=== PATIENT | female | born 1980 | race Caucasian/White ===

== ENCOUNTER 2016-04-24 09:51 | Inpatient (IN) | payer MEDICAID ==
[~2016-04-24] VITALS: Ht 167.6 cm; Wt 125.0 kg
[2016-04-24] MEDS ORDERED: LORazepam 2 MG/ML VIAL IM ONE ×2 (10:30→16:00)
[2016-04-24] MEDS ORDERED: DiphenhydrAMINE HCL 50 MG/ML VIAL IM ONE ×4 (10:30→16:00)
[2016-04-24] MEDS ORDERED: HALOPERIDOL LACTATE 5 MG/ML VIAL IM ONE ×2 (10:30→16:00)
[2016-04-24 10:38] LABS: ADD UA MICROSCOPIC YES; APPEARANCE,URINE CLOUDY (CLEAR); GLUCOSE, URINE (UA) NEGATIVE (NEGATIVE); KETONES,URINE TRACE mg/dL (NEGATIVE); LEUKOCYTE ESTERASE ,URINE SMALL (NEGATIVE); OCCULT BLOOD,URINE LARGE (NEGATIVE); PH,URINE 5.5 (5.0-8.0); PROTEIN,URINE POS 1+ (NEGATIVE)
[2016-04-24 10:43] LABS: RBC,URINE >100 /HPF (0-2); SQUAMOUS EPITHELIAL CELL,UR Few /LPF (None Seen)
[2016-04-24] MEDS ORDERED: ZIPRASIDONE MESYLATE 20 MG/VIAL IM ONE (10:45)
[2016-04-24] MEDS ORDERED: HALOPERIDOL 5 MG TABLET PO PRN (12:45)
[2016-04-24] MEDS ORDERED: LORazepam 2 MG TABLET PO PRN (12:45)
[2016-04-24] MEDS ORDERED: ZOLPIDEM TARTRATE 10 MG TABLET PO PRN (12:45)
[2016-04-24 13:23] LABS: BASOPHILS # (AUTO) 0.09 K/uL (0.00-0.20); EOSINOPHILS # (AUTO) 0.07 K/uL (0.00-0.70); EOSINOPHILS % (AUTO) 0.89 % (1.0-6.0); HEMATOCRIT 37.3 % (36-46); HEMOGLOBIN 12.1 g/dL (12.0-16.0); LYMPHOCYTES # (AUTO) 1.7 K/uL (1.0-4.8); LYMPHOCYTES % (AUTO) 20.8 % (22.0-44.0); MEAN CORPUSCULAR HEMOGLOBIN 26.5 pg (26.0-34.0); MEAN CORPUSCULAR HGB CONC 32.4 G/dL (31.0-37.0); MEAN CORPUSCULAR VOLUME 82 fL (80-100); MONOCYTES # (AUTO) 0.5 K/uL (0.1-1.0); MONOCYTES % (AUTO) 5.8 % (2.0-9.0); NEUTROPHILS % (AUTO) 71.5 % (40.0-70.0); PLATELET COUNT (AUTO) 290 K/uL (150-450); RED BLOOD CELL COUNT(AUTO) 4.57 MIL/uL (4.00-5.20); RED CELL DISTRIBUTION WIDTH 15.2 % (11.5-14.5); WHITE BLOOD COUNT (AUTO) 8.3 K/uL (4.5-11.0)
[2016-04-24 13:32] LABS: ANION GAP 5 mmol/L (8-16); CALCIUM, TOTAL 8.7 mg/dL (8.8-10.5); CARBON DIOXIDE 28 mmol/L (22-29); CHLORIDE 102 mmol/L (98-107); CREATININE 0.86 mg/dL (0.60-1.30); GLOMERULAR FILTR. RATE CALC > 60 mL/min (>60); SODIUM SERUM 135 mmol/L (136-145); UREA NITROGEN, BLOOD 11 mg/dL (7-18)
[2016-04-24 13:39] LABS: ALANINE AMINOTRANSFERASE 45 U/L (12-78); ALBUMIN 3.3 g/dL (3.4-5.0); ASPARTATE AMINOTRANSFERASE 18 U/L (15-37); BILIRUBIN,TOTAL 0.1 mg/dL (0.1-1.0); TOTAL PROTEIN, SERUM 6.7 g/dL (6.4-8.2)
[2016-04-24] MEDS ORDERED: HALOPERIDOL LACTATE 5 MG/ML VIAL ONE (15:52)
[2016-04-24] MEDS ORDERED: LORazepam 2 MG/ML VIAL ONE (15:53)
[2016-04-24 16:04] VITALS: BP 140/71
[2016-04-24] MEDS ORDERED: FluPHENAZine HCL 2.5 MG/ML INJ IM ONE ×2 (16:04→16:45)
[2016-04-24] MEDS ORDERED: INFLUENZA VIRUS VACCINE QVS 2016-17 (3YR+)/PF 60 MCG/0.5 ML SYRINGE IM ONE (17:00)
[2016-04-25 08:46] VITALS: BP 127/62
[2016-04-25] MEDS: RisperiDONE 1 MG TABLET PO SCH ×2 (12:00→17:00)
[2016-04-26] MEDS: RisperiDONE 1 MG TABLET PO SCH ×2 (09:00→16:46)
[2016-04-27 08:54] VITALS: BP 126/84
[2016-04-27] MEDS ORDERED: DiphenhydrAMINE HCL 50 MG/ML VIAL IM ONE (16:45)
[2016-04-27] MEDS: NICOTINE 21 MG/24 HOUR PATCH TD SCH (17:01)
[2016-04-27] MEDS: OLANZapine 5 MG TABLET PO SCH (21:00)
[2016-04-28] MEDS: NICOTINE 21 MG/24 HOUR PATCH TD SCH (08:20)
[2016-04-28] MEDS: OLANZapine 5 MG TABLET PO SCH (21:00)
[2016-04-29] MEDS: NICOTINE 21 MG/24 HOUR PATCH TD SCH (08:24)
[2016-04-29 16:38] VITALS: BP 137/76
[2016-04-29] MEDS ORDERED: ALBUTEROL SULFATE HFA 90 MCG/PUFF 8 GM INHALER IH PRN (16:45)
[2016-04-29] MEDS: OLANZapine 5 MG TABLET PO SCH (21:00)
[2016-04-30] MEDS: NICOTINE 21 MG/24 HOUR PATCH TD SCH (08:22)
[2016-04-30] MEDS ORDERED: OLAN5TAB2 PO (10:56)
== END 2016-04-30 13:20 | disposition home or self-care (01) | DRG 753 ==
LOC: EMS 09:56 → EEVIPCON 09:56 → B3A 14:26
PROVIDERS: ADMIT Psychiatry & Neurology Child & Adolescent Psychiatry; ATTEND Psychiatry & Neurology Child & Adolescent Psychiatry
DX: F31.2 Bipolar disorder, current episode manic severe with psychotic features (principal); Z68.41 Body mass index [BMI] 40.0-44.9, adult; E66.3 Overweight; F12.90 Cannabis use, unspecified, uncomplicated; J45.909 Unspecified asthma, uncomplicated; Z59.0 Homelessness; F14.90 Cocaine use, unspecified, uncomplicated; Z88.8 Allergy status to other drugs, medicaments and biological substances
CPT/HCPCS: 96372; 99285; G0480; J1200; J1630; J2060; J3486; J3490; J3535

== ENCOUNTER 2016-05-31 20:07 | Inpatient (IN) | payer MEDICAID ==
[~2016-05-31] VITALS: Ht 167.6 cm; Wt 90.9 kg
[~2016-05-31 20:07] MED LIST: OLAN5TAB2 PO
[2016-05-31 20:34] LABS: BASOPHILS % (AUTO) 0.6 % (0.0-2.0); HEMATOCRIT 37.3 % (36-46); HEMOGLOBIN 12.2 g/dL (12.0-16.0); LYMPHOCYTES # (AUTO) 1.8 K/uL (1.0-4.8); LYMPHOCYTES % (AUTO) 23.6 % (22.0-44.0); MEAN CORPUSCULAR HEMOGLOBIN 26.3 pg (26.0-34.0); MEAN CORPUSCULAR HGB CONC 32.8 G/dL (31.0-37.0); MEAN CORPUSCULAR VOLUME 80 fL (80-100); MONOCYTES # (AUTO) 0.7 K/uL (0.1-1.0); MONOCYTES % (AUTO) 9.6 % (2.0-9.0); NEUTROPHILS % (AUTO) 65.2 % (40.0-70.0); PLATELET COUNT (AUTO) 345 K/uL (150-450); RED BLOOD CELL COUNT(AUTO) 4.64 MIL/uL (4.00-5.20); RED CELL DISTRIBUTION WIDTH 15.4 % (11.5-14.5); WHITE BLOOD COUNT (AUTO) 7.6 K/uL (4.5-11.0)
[2016-05-31 20:44] LABS: ANION GAP 8 mmol/L (8-16); CALCIUM, TOTAL 9.1 mg/dL (8.8-10.5); CARBON DIOXIDE 29 mmol/L (22-29); CHLORIDE 104 mmol/L (98-107); CREATININE 1.24 mg/dL (0.60-1.30); GLOMERULAR FILTR. RATE CALC 49 mL/min (>60); POTASSIUM 4.3 mmol/L (3.5-5.1); SODIUM SERUM 141 mmol/L (136-145); UREA NITROGEN, BLOOD 10 mg/dL (7-18)
[2016-05-31 20:51] LABS: ALANINE AMINOTRANSFERASE 27 U/L (12-78); ALBUMIN 3.6 g/dL (3.4-5.0); ASPARTATE AMINOTRANSFERASE 18 U/L (15-37); BILIRUBIN,TOTAL 0.3 mg/dL (0.1-1.0); TOTAL PROTEIN, SERUM 7.2 g/dL (6.4-8.2)
[2016-05-31] MEDS ORDERED: HALOPERIDOL 5 MG TABLET PO PRN (21:30)
[2016-05-31] MEDS ORDERED: LORazepam 2 MG TABLET PO PRN (21:30)
[2016-05-31] MEDS ORDERED: ZOLPIDEM TARTRATE 10 MG TABLET PO PRN (21:30)
[2016-06-01] MEDS ORDERED: LORazepam 2 MG/ML VIAL IM ONE (11:30)
[2016-06-01 12:46] VITALS: BP 139/89
[2016-06-01] MEDS ORDERED: ALBUTEROL SULFATE HFA 90 MCG/PUFF 8 GM INHALER IH PRN (14:30)
[2016-06-02 01:17] VITALS: BP 120/66
[2016-06-02] MEDS ORDERED: IBUPROFEN 400 MG TABLET PO PRN (10:45)
[2016-06-02] MEDS ORDERED: ACETAMINOPHEN 325 MG TABLET PO PRN (10:45)
[2016-06-02] MEDS ORDERED: ALBUTEROL SULFATE HFA 90 MCG/PUFF 8 GM INHALER IH PRN (10:45)
[2016-06-02] MEDS: NICOTINE 21 MG/24 HOUR PATCH TD SCH (12:35)
[2016-06-03] MEDS: NICOTINE 21 MG/24 HOUR PATCH TD SCH (08:22)
[2016-06-03 08:23] LABS: BASOPHILS # (AUTO) 0.04 K/uL (0.00-0.20); BASOPHILS % (AUTO) 0.6 % (0.0-2.0); EOSINOPHILS % (AUTO) 1.48 % (1.0-6.0); HEMATOCRIT 39.4 % (36-46); HEMOGLOBIN 12.8 g/dL (12.0-16.0); LYMPHOCYTES # (AUTO) 2.8 K/uL (1.0-4.8); LYMPHOCYTES % (AUTO) 41.5 % (22.0-44.0); MEAN CORPUSCULAR HEMOGLOBIN 26.2 pg (26.0-34.0); MEAN CORPUSCULAR HGB CONC 32.6 G/dL (31.0-37.0); MEAN CORPUSCULAR VOLUME 80 fL (80-100); MONOCYTES # (AUTO) 0.5 K/uL (0.1-1.0); MONOCYTES % (AUTO) 6.8 % (2.0-9.0); NEUTROPHILS # (AUTO) 3.3 K/uL (1.8-7.7); NEUTROPHILS % (AUTO) 49.7 % (40.0-70.0); PLATELET COUNT (AUTO) 355 K/uL (150-450); RED CELL DISTRIBUTION WIDTH 16.4 % (11.5-14.5); WHITE BLOOD COUNT (AUTO) 6.7 K/uL (4.5-11.0)
[2016-06-03 08:44] LABS: HEMOGLOBIN A1C 5.4 % (4.5-6.2)
[2016-06-03 08:50] LABS: ALANINE AMINOTRANSFERASE 35 U/L (12-78); ALBUMIN 3.6 g/dL (3.4-5.0); ANION GAP 7 mmol/L (8-16); ASPARTATE AMINOTRANSFERASE 16 U/L (15-37); BILIRUBIN,TOTAL 0.3 mg/dL (0.1-1.0); CARBON DIOXIDE 30 mmol/L (22-29); CHLORIDE 103 mmol/L (98-107); CHOL/HDL RATIO 4.3 (3.9-5.7); CREATININE 0.94 mg/dL (0.60-1.30); GLOMERULAR FILTR. RATE CALC > 60 mL/min (>60); POTASSIUM 3.9 mmol/L (3.5-5.1); SODIUM SERUM 140 mmol/L (136-145); THYROID STIMULATING HORMONE 1.69 uIU/mL (0.36-3.74); TOTAL PROTEIN, SERUM 7.2 g/dL (6.4-8.2); UREA NITROGEN, BLOOD 7 mg/dL (7-18)
[2016-06-03] MEDS: RisperiDONE 2 MG TABLET PO SCH ×3 (10:15→17:00)
[2016-06-04] MEDS: NICOTINE 21 MG/24 HOUR PATCH TD SCH (08:53)
[2016-06-04] MEDS: RisperiDONE 2 MG TABLET PO SCH (08:54)
[2016-06-04] MEDS ORDERED: RISP2 PO (09:47)
== END 2016-06-04 13:28 | disposition home or self-care (01) | DRG 750 ==
LOC: EMS 20:08 → EEVIPCON 20:08 → B3A 06-01 10:21
PROVIDERS: ADMIT Psychiatry & Neurology Psychiatry; ATTEND Psychiatry & Neurology Psychiatry
DX: F25.9 Schizoaffective disorder, unspecified (principal); Z59.0 Homelessness; F31.9 Bipolar disorder, unspecified; F10.10 Alcohol abuse, uncomplicated; F17.210 Nicotine dependence, cigarettes, uncomplicated; F15.90 Other stimulant use, unspecified, uncomplicated; F19.10 Other psychoactive substance abuse, uncomplicated; J45.909 Unspecified asthma, uncomplicated; F41.9 Anxiety disorder, unspecified; Z88.8 Allergy status to other drugs, medicaments and biological substances; Z79.899 Other long term (current) drug therapy; Z71.6 Tobacco abuse counseling; Z71.41 Alcohol abuse counseling and surveillance of alcoholic; Z71.89 Other specified counseling
CPT/HCPCS: 83036; 84443; 96372; 99285; G0480; J2060; J3535

== ENCOUNTER 2016-08-12 09:18 | Inpatient (IN) | payer MEDICAID ==
[~2016-08-12] VITALS: Ht 167.6 cm; Wt 112.9 kg
[~2016-08-12 09:18] MED LIST changes: -OLAN5TAB2 PO; +RISP2 PO
[2016-08-12] MEDS ORDERED: ALBU8HFA IH (09:35)
[2016-08-12 09:47] LABS: GLUCOSE,POINT OF CARE 100 MG/DL (70-110)
[2016-08-12 10:58] LABS: BASOPHILS % (AUTO) 0.5 % (0.0-2.0); EOSINOPHILS % (AUTO) 1.6 % (1.0-6.0); HEMOGLOBIN 11.7 g/dL (12.0-16.0); LYMPHOCYTES # (AUTO) 1.9 K/uL (1.0-4.8); LYMPHOCYTES % (AUTO) 29.2 % (22.0-44.0); MEAN CORPUSCULAR HEMOGLOBIN 25.5 pg (26.0-34.0); MEAN CORPUSCULAR HGB CONC 32.5 G/dL (31.0-37.0); MEAN CORPUSCULAR VOLUME 78 fL (80-100); MONOCYTES # (AUTO) 0.5 K/uL (0.1-1.0); NEUTROPHILS # (AUTO) 4.1 K/uL (1.8-7.7); NEUTROPHILS % (AUTO) 61.7 % (40.0-70.0); PLATELET COUNT (AUTO) 376 K/uL (150-450); RED CELL DISTRIBUTION WIDTH 16.7 % (11.5-14.5); WHITE BLOOD COUNT (AUTO) 6.6 K/uL (4.5-11.0)
[2016-08-12] MEDS ORDERED: DiphenhydrAMINE HCL 50 MG/ML VIAL IM ONE (11:00)
[2016-08-12] MEDS ORDERED: HALOPERIDOL LACTATE 5 MG/ML VIAL IM ONE ×2 (11:00→12:30)
[2016-08-12] MEDS ORDERED: LORazepam 2 MG/ML VIAL IM ONE (11:00)
[2016-08-12 11:07] LABS: ANION GAP 12 mmol/L (8-16); CALCIUM, TOTAL 8.8 mg/dL (8.8-10.5); CARBON DIOXIDE 23 mmol/L (22-29); CHLORIDE 103 mmol/L (98-107); CREATININE 0.91 mg/dL (0.60-1.30); GLOMERULAR FILTR. RATE CALC > 60 mL/min (>60); POTASSIUM 3.9 mmol/L (3.5-5.1); SODIUM SERUM 138 mmol/L (136-145); UREA NITROGEN, BLOOD 12 mg/dL (7-18)
[2016-08-12 11:13] LABS: ALANINE AMINOTRANSFERASE 36 U/L (12-78); ALBUMIN 3.8 g/dL (3.4-5.0); ASPARTATE AMINOTRANSFERASE 36 U/L (15-37); BILIRUBIN,TOTAL 0.4 mg/dL (0.1-1.0); TOTAL PROTEIN, SERUM 7.1 g/dL (6.4-8.2)
[2016-08-12] MEDS ORDERED: ALBUTEROL SULFATE HFA 90 MCG/PUFF 8 GM INHALER IH PRN (14:30)
[2016-08-12] MEDS: RisperiDONE 3 MG TABLET PO SCH (17:00)
[2016-08-13] MEDS: FERROUS SULFATE 325 MG EC TABLET PO SCH ×2 (06:42→17:45)
[2016-08-13 08:21] VITALS: BP 115/68
[2016-08-13] MEDS: RisperiDONE 3 MG TABLET PO SCH ×2 (09:00→17:45)
[2016-08-13] MEDS ORDERED: DiphenhydrAMINE HCL 50 MG/ML VIAL IM ONE (12:00)
[2016-08-13] MEDS ORDERED: LORazepam 2 MG/ML VIAL IM ONE (12:00)
[2016-08-13] MEDS ORDERED: HALOPERIDOL LACTATE 5 MG/ML VIAL IM ONE (12:00)
[2016-08-13] MEDS: HALOPERIDOL 5 MG TABLET PO PRN (20:16)
[2016-08-13] MEDS: LORazepam 2 MG TABLET PO PRN (20:16)
[2016-08-14] MEDS: FERROUS SULFATE 325 MG EC TABLET PO SCH ×2 (06:52→16:52)
[2016-08-14 08:20] VITALS: BP 104/76
[2016-08-14] MEDS: RisperiDONE 3 MG TABLET PO SCH ×2 (09:00→16:52)
[2016-08-14] MEDS: HALOPERIDOL 5 MG TABLET PO PRN ×2 (12:46→19:50)
[2016-08-14] MEDS: LORazepam 2 MG TABLET PO PRN ×2 (12:46→19:50)
[2016-08-14 16:07] VITALS: BP 110/79
[2016-08-14] MEDS: ZOLPIDEM TARTRATE 10 MG TABLET PO PRN (21:26)
[2016-08-15] MEDS: FERROUS SULFATE 325 MG EC TABLET PO SCH ×2 (06:54→17:27)
[2016-08-15] MEDS: RisperiDONE 3 MG TABLET PO SCH ×2 (10:00→17:00)
[2016-08-15] MEDS: NICOTINE 14 MG/24 HOUR PATCH TD SCH (10:00)
[2016-08-15] MEDS ORDERED: LORazepam 2 MG/ML VIAL ONE (10:48)
[2016-08-15] MEDS ORDERED: HALOPERIDOL LACTATE 5 MG/ML VIAL ONE (10:48)
[2016-08-15] MEDS ORDERED: DiphenhydrAMINE HCL 50 MG/ML VIAL ONE (10:48)
[2016-08-15] MEDS ORDERED: DiphenhydrAMINE HCL 50 MG/ML VIAL IM ONE (11:00)
[2016-08-15] MEDS ORDERED: LORazepam 2 MG/ML VIAL IM ONE ×2 (11:00→17:30)
[2016-08-15] MEDS ORDERED: HALOPERIDOL LACTATE 5 MG/ML VIAL IM ONE ×2 (11:00→17:30)
[2016-08-16] MEDS: FERROUS SULFATE 325 MG EC TABLET PO SCH ×2 (06:42→17:30)
[2016-08-16] MEDS: RisperiDONE 3 MG TABLET PO SCH ×3 (09:00→17:00)
[2016-08-16] MEDS: NICOTINE 14 MG/24 HOUR PATCH TD SCH ×2 (10:00→10:21)
[2016-08-16] MEDS ORDERED: LORazepam 2 MG/ML VIAL IM ONE (10:30)
[2016-08-16] MEDS ORDERED: DiphenhydrAMINE HCL 50 MG/ML VIAL IM ONE (10:30)
[2016-08-16] MEDS ORDERED: HALOPERIDOL LACTATE 5 MG/ML VIAL IM ONE (10:30)
[2016-08-16 18:33] VITALS: BP 120/71
[2016-08-17] MEDS: FERROUS SULFATE 325 MG EC TABLET PO SCH ×2 (07:04→16:35)
[2016-08-17] MEDS: RisperiDONE 3 MG TABLET PO SCH ×2 (09:00→16:35)
[2016-08-17] MEDS: NICOTINE 14 MG/24 HOUR PATCH TD SCH (09:00)
[2016-08-18] MEDS: LORazepam 2 MG TABLET PO PRN (01:04)
[2016-08-18] MEDS: FERROUS SULFATE 325 MG EC TABLET PO SCH ×2 (09:59→18:04)
[2016-08-18] MEDS: RisperiDONE 3 MG TABLET PO SCH ×2 (09:59→18:04)
[2016-08-18] MEDS: NICOTINE 14 MG/24 HOUR PATCH TD SCH (09:59)
[2016-08-18 16:00] VITALS: BP 122/72
[2016-08-18] MEDS: ZOLPIDEM TARTRATE 10 MG TABLET PO PRN (23:35)
[2016-08-19] MEDS: LORazepam 2 MG TABLET PO PRN ×2 (04:22→21:49)
[2016-08-19] MEDS: FERROUS SULFATE 325 MG EC TABLET PO SCH ×2 (07:01→16:42)
[2016-08-19] MEDS: RisperiDONE 3 MG TABLET PO SCH ×2 (10:01→16:42)
[2016-08-19] MEDS: NICOTINE 14 MG/24 HOUR PATCH TD SCH (10:13)
[2016-08-19 12:13] VITALS: BP 149/87
[2016-08-19 16:47] VITALS: BP 131/83
[2016-08-19 16:48] VITALS: BP 131/83
[2016-08-19] MEDS: ZOLPIDEM TARTRATE 10 MG TABLET PO PRN (21:49)
[2016-08-20] MEDS: FERROUS SULFATE 325 MG EC TABLET PO SCH (07:04)
[2016-08-20 08:25] VITALS: BP 140/76
[2016-08-20] MEDS ORDERED: FERR-89 PO (08:30)
[2016-08-20] MEDS ORDERED: RISP3 PO (08:30)
[2016-08-20] MEDS: NICOTINE 14 MG/24 HOUR PATCH TD SCH (08:59)
[2016-08-20] MEDS: RisperiDONE 3 MG TABLET PO SCH (08:59)
== END 2016-08-20 12:15 | disposition home or self-care (01) | DRG 750 ==
LOC: EMS 09:19 → 3EC 11:18
PROVIDERS: ADMIT Psychiatry & Neurology Psychiatry; ATTEND Psychiatry & Neurology Psychiatry
DX: F25.9 Schizoaffective disorder, unspecified (principal); J18.9 Pneumonia, unspecified organism; F22 Delusional disorders; Z59.0 Homelessness; F31.9 Bipolar disorder, unspecified; J45.909 Unspecified asthma, uncomplicated; F17.210 Nicotine dependence, cigarettes, uncomplicated; F15.90 Other stimulant use, unspecified, uncomplicated; F19.10 Other psychoactive substance abuse, uncomplicated; Z71.51 Drug abuse counseling and surveillance of drug abuser; Z72.89 Other problems related to lifestyle
CPT/HCPCS: 82962; 96372; 99291; G0480; J1200; J1630; J2060; J3535

== ENCOUNTER 2016-12-22 14:02 | Inpatient (IN) | payer MEDICAID, OTHER ==
[~2016-12-22] VITALS: Ht 167.6 cm; Wt 104.5 kg
[~2016-12-22 14:02] MED LIST changes: +FERR-89 PO; -RISP2 PO; +RISP3 PO
[2016-12-22] MEDS ORDERED: HALO5 PO (14:29)
[2016-12-22] MEDS ORDERED: ZOLPIDEM TARTRATE 10 MG TABLET PO PRN (16:00)
[2016-12-22 20:03] VITALS: BP 142/79
[2016-12-22] MEDS ORDERED: PNEUMOCOCCAL VACCINE POLYVALENT 0.5 ML VIAL [PPSV23] IM ONE (20:15)
[2016-12-22] MEDS ORDERED: INFLUENZA VIRUS VACCINE QVS 2017-18 (3YR+)/PF 60 MCG/0.5 ML SYRINGE IM ONE (20:15)
[2016-12-23 08:29] VITALS: BP 150/79
[2016-12-23] MEDS: NICOTINE 21 MG/24 HOUR PATCH TD SCH (08:44)
[2016-12-23] MEDS: LORazepam 2 MG TABLET PO PRN ×2 (09:27→21:05)
[2016-12-23] MEDS: HALOPERIDOL 5 MG TABLET PO PRN ×2 (09:28→21:05)
[2016-12-23] MEDS ORDERED: LORazepam 2 MG/ML VIAL ONE (09:54)
[2016-12-23] MEDS ORDERED: HALOPERIDOL LACTATE 5 MG/ML VIAL ONE (09:54)
[2016-12-23] MEDS ORDERED: DiphenhydrAMINE HCL 50 MG/ML VIAL ONE (09:55)
[2016-12-23] MEDS ORDERED: LORazepam 2 MG/ML VIAL IM ONE (10:00)
[2016-12-23] MEDS ORDERED: HALOPERIDOL LACTATE 5 MG/ML VIAL IM ONE (10:00)
[2016-12-23] MEDS ORDERED: DiphenhydrAMINE HCL 50 MG/ML VIAL IM ONE (10:00)
[2016-12-23] MEDS: RisperiDONE 2 MG TABLET PO SCH (16:38)
[2016-12-23] MEDS ORDERED: CloNIDine HCL 0.1 MG TABLET PO PRN (19:30)
[2016-12-23] MEDS ORDERED: ACETAMINOPHEN 325 MG TABLET PO PRN (19:30)
[2016-12-23] MEDS ORDERED: IBUPROFEN 600 MG TABLET PO PRN (19:30)
[2016-12-23] MEDS ORDERED: MAGNESIUM HYDROXIDE SUSPENSION 30 ML UDCUP PO PRN (19:30)
[2016-12-23] MEDS ORDERED: BENZOCAINE/MENTHOL LOZENGE MM PRN (19:30)
[2016-12-23] MEDS ORDERED: ONDANSETRON HCL 4 MG TABLET PO PRN (19:30)
[2016-12-23] MEDS ORDERED: MAG HYDROX/AL HYDROX/SIMETH ES 30 ML SUSPENSION UDCUP PO PRN (19:30)
[2016-12-23] MEDS ORDERED: BACITRACIN 28.4 GM OINTMENT TP PRN (19:30)
[2016-12-23] MEDS ORDERED: ALBUTEROL SULFATE HFA 90 MCG/PUFF 8 GM INHALER IH PRN (19:30)
[2016-12-23] MEDS ORDERED: PETROLATUM,WHITE 71 GM JELLY TP PRN (19:30)
[2016-12-23] MEDS ORDERED: LOPERAMIDE HCL 2 MG CAPSULE PO PRN (19:30)
[2016-12-24] MEDS: RisperiDONE 2 MG TABLET PO SCH ×2 (09:00→17:00)
[2016-12-24] MEDS: NICOTINE 21 MG/24 HOUR PATCH TD SCH (10:40)
[2016-12-24] MEDS: LISINOPRIL 10 MG TABLET PO SCH (10:41)
[2016-12-24] MEDS: HALOPERIDOL 5 MG TABLET PO PRN (12:39)
[2016-12-24] MEDS: LORazepam 2 MG TABLET PO PRN (12:39)
[2016-12-24 18:05] VITALS: BP 134/91
[2016-12-25 07:18] VITALS: BP 148/82
[2016-12-25 08:04] LABS: BASOPHILS # (AUTO) 0.02 K/uL (0.00-0.20); BASOPHILS % (AUTO) 0.3 % (0.0-2.0); EOSINOPHILS # (AUTO) 0.09 K/uL (0.00-0.70); EOSINOPHILS % (AUTO) 1.35 % (1.0-6.0); HEMOGLOBIN 11.9 g/dL (12.0-16.0); LYMPHOCYTES # (AUTO) 2.4 K/uL (1.0-4.8); MEAN CORPUSCULAR HEMOGLOBIN 27.5 pg (26.0-34.0); MEAN CORPUSCULAR HGB CONC 32.9 G/dL (31.0-37.0); MEAN CORPUSCULAR VOLUME 84 fL (80-100); MONOCYTES # (AUTO) 0.7 K/uL (0.1-1.0); MONOCYTES % (AUTO) 9.7 % (2.0-9.0); NEUTROPHILS # (AUTO) 3.7 K/uL (1.8-7.7); NEUTROPHILS % (AUTO) 53.6 % (40.0-70.0); PLATELET COUNT (AUTO) 321 K/uL (150-450); RED BLOOD CELL COUNT(AUTO) 4.31 MIL/uL (4.00-5.20); RED CELL DISTRIBUTION WIDTH 18.7 % (11.5-14.5)
[2016-12-25 08:51] LABS: AMPHET/METH SCREEN,URINE NEGATIVE (NEGATIVE); BARBITURATE SCREEN, URINE NEGATIVE (NEGATIVE); BENZODIAZEPINES SCREEN,URINE NEGATIVE (NEGATIVE); CANNABINOID SCREEN,URINE NEGATIVE (NEGATIVE); COCAINE SCREEN,URINE NEGATIVE (NEGATIVE); METHADONE SCREEN, URINE NEGATIVE (NEGATIVE); OPIATE SCREEN,URINE NEGATIVE (NEGATIVE); PHENCYCLIDINE SCREEN,URINE NEGATIVE (NEGATIVE)
[2016-12-25 09:00] LABS: HEMOGLOBIN A1C 4.9 % (4.5-6.2)
[2016-12-25] MEDS: RisperiDONE 2 MG TABLET PO SCH ×2 (09:00→17:00)
[2016-12-25] MEDS: LISINOPRIL 10 MG TABLET PO SCH (09:00)
[2016-12-25 10:03] LABS: ALANINE AMINOTRANSFERASE 28 U/L (12-78); ALBUMIN 3.4 g/dL (3.4-5.0); ALKALINE PHOSPHATASE 76 U/L (46-116); ANION GAP 8 mmol/L (8-16); ASPARTATE AMINOTRANSFERASE 10 U/L (15-37); BILIRUBIN,TOTAL 0.3 mg/dL (0.1-1.0); CALCIUM, TOTAL 8.7 mg/dL (8.8-10.5); CARBON DIOXIDE 30 mmol/L (22-29); CHLORIDE 102 mmol/L (98-107); CHOL/HDL RATIO 3.8 (3.9-5.7); CHOLESTEROL 150 mg/dL (131-200); CREATININE 0.89 mg/dL (0.60-1.30); GLOMERULAR FILTR. RATE CALC > 60 mL/min (>60); GLUCOSE,RANDOM 77 mg/dL (70-110); HCG,QUANTITATIVE < 1 mIU/mL (0-6); HDL CHOLESTEROL 40 mg/dL (40-60); LDL CHOL (CALC.) 88 mg/dL (0-130); POTASSIUM 4.3 mmol/L (3.5-5.1); SODIUM SERUM 140 mmol/L (136-145); THYROID STIMULATING HORMONE 4.19 uIU/mL (0.36-3.74); TOTAL PROTEIN, SERUM 6.8 g/dL (6.4-8.2); TRIGLYCERIDES 112 mg/dL (15-150); UREA NITROGEN, BLOOD 12 mg/dL (7-18)
[2016-12-25] MEDS: NICOTINE 21 MG/24 HOUR PATCH TD SCH (10:09)
[2016-12-25 10:18] LABS: APPEARANCE,URINE CLEAR (CLEAR); BILIRUBIN,URINE NEGATIVE (NEGATIVE); GLUCOSE, URINE (UA) NEGATIVE (NEGATIVE); KETONES,URINE NEGATIVE (NEGATIVE); LEUKOCYTE ESTERASE ,URINE NEGATIVE (NEGATIVE); NITRATE,URINE NEGATIVE (NEGATIVE); OCCULT BLOOD,URINE NEGATIVE (NEGATIVE); PROTEIN,URINE NEGATIVE (NEGATIVE); UROBILINOGEN,URINE 0.2 mg/dL (<=1.0)
[2016-12-25 11:30] LABS: HCG,QUAL RESULT NEGATIVE (NEGATIVE)
[2016-12-25] MEDS: HALOPERIDOL 5 MG TABLET PO PRN (12:59)
[2016-12-25] MEDS: LORazepam 2 MG TABLET PO PRN (12:59)
[2016-12-25 16:00] VITALS: BP 128/80
[2016-12-25 19:16] LABS: FREE T4 (FREE THYROXINE) 1.15 ng/dL (0.76-1.46)
[2016-12-26 06:10] VITALS: BP 119/69
[2016-12-26 08:05] VITALS: BP 104/77
[2016-12-26] MEDS: LORazepam 2 MG TABLET PO PRN (08:55)
[2016-12-26] MEDS: LISINOPRIL 10 MG TABLET PO SCH (08:57)
[2016-12-26] MEDS: RisperiDONE 2 MG TABLET PO SCH ×2 (08:57→17:00)
[2016-12-26] MEDS: NICOTINE 21 MG/24 HOUR PATCH TD SCH (10:34)
[2016-12-26 15:52] VITALS: BP 116/67
[2016-12-27 08:03] VITALS: BP 115/85
[2016-12-27] MEDS: RisperiDONE 2 MG TABLET PO SCH ×2 (09:00→16:38)
[2016-12-27] MEDS: LISINOPRIL 10 MG TABLET PO SCH (09:41)
[2016-12-27] MEDS: NICOTINE 21 MG/24 HOUR PATCH TD SCH (09:45)
[2016-12-27] MEDS ORDERED: DiphenhydrAMINE HCL 50 MG/ML VIAL IM ONE (14:30)
[2016-12-27] MEDS ORDERED: LORazepam 2 MG/ML VIAL IM ONE (14:30)
[2016-12-27] MEDS ORDERED: HALOPERIDOL LACTATE 5 MG/ML VIAL IM ONE (14:30)
[2016-12-28] MEDS: LISINOPRIL 10 MG TABLET PO SCH (08:50)
[2016-12-28] MEDS: NICOTINE 21 MG/24 HOUR PATCH TD SCH (08:50)
[2016-12-28] MEDS: RisperiDONE 2 MG TABLET PO SCH ×2 (08:51→08:55)
[2016-12-29] MEDS: LEVOTHYROXINE SODIUM 25 MCG TABLET PO SCH (06:21)
[2016-12-29] MEDS: LISINOPRIL 10 MG TABLET PO SCH (08:14)
[2016-12-29] MEDS: NICOTINE 21 MG/24 HOUR PATCH TD SCH (08:14)
[2016-12-29] MEDS: RisperiDONE 2 MG TABLET PO SCH ×2 (08:14→17:00)
[2016-12-29 08:29] VITALS: BP 115/59
[2016-12-29] MEDS ORDERED: LORazepam 2 MG/ML VIAL ONE (11:37)
[2016-12-29] MEDS ORDERED: HALOPERIDOL LACTATE 5 MG/ML VIAL ONE (11:38)
[2016-12-29] MEDS ORDERED: DiphenhydrAMINE HCL 50 MG/ML VIAL ONE (11:38)
[2016-12-29] MEDS ORDERED: DiphenhydrAMINE HCL 50 MG/ML VIAL IM ONE (11:45)
[2016-12-29] MEDS ORDERED: HALOPERIDOL LACTATE 5 MG/ML VIAL IM ONE (11:45)
[2016-12-29] MEDS ORDERED: LORazepam 2 MG/ML VIAL IM ONE (11:45)
[2016-12-30] MEDS: LEVOTHYROXINE SODIUM 25 MCG TABLET PO SCH (06:30)
[2016-12-30] MEDS: LISINOPRIL 10 MG TABLET PO SCH (08:34)
[2016-12-30] MEDS: NICOTINE 21 MG/24 HOUR PATCH TD SCH (08:34)
[2016-12-30 08:42] VITALS: BP 124/71
[2016-12-30] MEDS: RisperiDONE 2 MG TABLET PO SCH ×2 (09:00→17:00)
[2016-12-30] MEDS ORDERED: LORazepam 2 MG/ML VIAL IM ONE (19:15)
[2016-12-30] MEDS ORDERED: HALOPERIDOL LACTATE 5 MG/ML VIAL IM ONE (19:15)
[2016-12-30] MEDS ORDERED: DiphenhydrAMINE HCL 50 MG/ML VIAL IM ONE (19:15)
[2016-12-31] MEDS: LEVOTHYROXINE SODIUM 25 MCG TABLET PO SCH (06:30)
[2016-12-31 06:32] VITALS: BP 118/64
[2016-12-31] MEDS: RisperiDONE 2 MG TABLET PO SCH ×2 (09:00→16:53)
[2016-12-31] MEDS: LISINOPRIL 10 MG TABLET PO SCH (09:00)
[2016-12-31] MEDS: NICOTINE 21 MG/24 HOUR PATCH TD SCH (09:51)
[2016-12-31] MEDS ORDERED: HALOPERIDOL LACTATE 5 MG/ML VIAL IM PRN (10:30)
[2016-12-31 16:17] VITALS: BP 111/63
[2017-01-01 05:38] VITALS: BP 121/72
[2017-01-01] MEDS: LEVOTHYROXINE SODIUM 25 MCG TABLET PO SCH (06:24)
[2017-01-01 08:00] VITALS: BP 113/52
[2017-01-01] MEDS: NICOTINE 21 MG/24 HOUR PATCH TD SCH (08:40)
[2017-01-01] MEDS: RisperiDONE 2 MG TABLET PO SCH ×2 (08:40→16:38)
[2017-01-01] MEDS: LISINOPRIL 10 MG TABLET PO SCH (08:42)
[2017-01-01 16:20] VITALS: BP 134/78
[2017-01-02] MEDS: LEVOTHYROXINE SODIUM 25 MCG TABLET PO SCH (06:30)
[2017-01-02 08:11] VITALS: BP 124/61
[2017-01-02] MEDS: NICOTINE 21 MG/24 HOUR PATCH TD SCH (08:40)
[2017-01-02] MEDS: RisperiDONE 2 MG TABLET PO SCH ×2 (08:40→16:30)
[2017-01-02] MEDS: LISINOPRIL 10 MG TABLET PO SCH (08:40)
[2017-01-02 16:30] VITALS: BP 108/65
[2017-01-03] MEDS: LEVOTHYROXINE SODIUM 25 MCG TABLET PO SCH (06:20)
[2017-01-03 06:58] VITALS: BP 105/60
[2017-01-03 08:13] VITALS: BP 124/67
[2017-01-03] MEDS: LISINOPRIL 10 MG TABLET PO SCH (08:22)
[2017-01-03] MEDS: NICOTINE 21 MG/24 HOUR PATCH TD SCH (08:22)
[2017-01-03] MEDS: RisperiDONE 2 MG TABLET PO SCH ×2 (08:22→16:47)
[2017-01-03] MEDS: LORazepam 2 MG TABLET PO PRN (08:35)
[2017-01-03 16:07] VITALS: BP 106/60
[2017-01-04] MEDS: LEVOTHYROXINE SODIUM 25 MCG TABLET PO SCH (06:30)
[2017-01-04] MEDS: RisperiDONE 2 MG TABLET PO SCH ×2 (10:05→16:20)
[2017-01-04] MEDS: LISINOPRIL 10 MG TABLET PO SCH (10:05)
[2017-01-04] MEDS: NICOTINE 21 MG/24 HOUR PATCH TD SCH (10:05)
[2017-01-04 16:09] VITALS: BP 124/67
[2017-01-04] MEDS: LORazepam 2 MG TABLET PO PRN (16:20)
[2017-01-05] MEDS: LEVOTHYROXINE SODIUM 25 MCG TABLET PO SCH (06:30)
[2017-01-05 08:25] VITALS: BP 116/66
[2017-01-05] MEDS: RisperiDONE 2 MG TABLET PO SCH ×2 (08:25→16:11)
[2017-01-05] MEDS: LISINOPRIL 10 MG TABLET PO SCH (08:25)
[2017-01-05] MEDS: NICOTINE 21 MG/24 HOUR PATCH TD SCH (08:25)
[2017-01-05 16:23] VITALS: BP 115/66
[2017-01-06] MEDS: LEVOTHYROXINE SODIUM 25 MCG TABLET PO SCH (06:30)
[2017-01-06 08:25] VITALS: BP 100/58
[2017-01-06] MEDS: LISINOPRIL 10 MG TABLET PO SCH (09:00)
[2017-01-06] MEDS: NICOTINE 21 MG/24 HOUR PATCH TD SCH (09:20)
[2017-01-06] MEDS: RisperiDONE 2 MG TABLET PO SCH (09:21)
[2017-01-06 16:10] VITALS: BP 116/67
[2017-01-06] MEDS: RisperiDONE 3 MG TABLET PO SCH (20:03)
[2017-01-07] MEDS: LEVOTHYROXINE SODIUM 25 MCG TABLET PO SCH (06:20)
[2017-01-07 07:22] VITALS: BP 115/72
[2017-01-07] MEDS: LORazepam 2 MG TABLET PO PRN (08:13)
[2017-01-07] MEDS: LISINOPRIL 10 MG TABLET PO SCH ×2 (08:13→09:00)
[2017-01-07] MEDS: NICOTINE 21 MG/24 HOUR PATCH TD SCH (08:13)
[2017-01-07] MEDS: RisperiDONE 3 MG TABLET PO SCH ×2 (08:13→20:11)
[2017-01-07] MEDS: HALOPERIDOL 5 MG TABLET PO PRN (08:14)
[2017-01-07 08:21] VITALS: BP 116/66
[2017-01-07 16:04] VITALS: BP 115/68
[2017-01-08] MEDS: LEVOTHYROXINE SODIUM 25 MCG TABLET PO SCH (06:30)
[2017-01-08 08:12] VITALS: BP 114/63
[2017-01-08] MEDS: NICOTINE 21 MG/24 HOUR PATCH TD SCH (08:39)
[2017-01-08] MEDS: RisperiDONE 3 MG TABLET PO SCH (08:39)
[2017-01-08] MEDS: LISINOPRIL 10 MG TABLET PO SCH (09:00)
[2017-01-08 16:01] VITALS: BP 129/90
[2017-01-08] MEDS ORDERED: LEVO25TA9 PO (16:08)
[2017-01-08] MEDS ORDERED: RISP3 PO (16:08)
[2017-01-08] MEDS ORDERED: LISI-661 PO (16:08)
== END 2017-01-08 17:00 | disposition home or self-care (01) | DRG 750 ==
LOC: EMS 14:03 → B3A 18:20
DX: F20.0 Paranoid schizophrenia (principal); R45.850 Homicidal ideations; I10 Essential (primary) hypertension; F29 Unspecified psychosis not due to a substance or known physiological condition; K59.00 Constipation, unspecified; F12.90 Cannabis use, unspecified, uncomplicated; J45.909 Unspecified asthma, uncomplicated; E66.9 Obesity, unspecified; F17.210 Nicotine dependence, cigarettes, uncomplicated; Z71.6 Tobacco abuse counseling; Z71.51 Drug abuse counseling and surveillance of drug abuser; Z28.21 Immunization not carried out because of patient refusal; Z79.899 Other long term (current) drug therapy; Z59.0 Homelessness
CPT/HCPCS: 80307; 83036; 84439; 84443; 99285; J1200; J1630; J2060

== ENCOUNTER 2017-01-10 01:37 | Inpatient (IN) | payer MEDICAID, OTHER ==
[~2017-01-10] VITALS: Ht 170.2 cm; Wt 104.3 kg
[2017-01-10 01:09] LABS: BASOPHILS % (AUTO) 0.2 % (0.0-2.0); EOSINOPHILS % (AUTO) 1.65 % (1.0-6.0); HEMATOCRIT 36.8 % (36-46); HEMOGLOBIN 12.2 g/dL (12.0-16.0); LYMPHOCYTES % (AUTO) 26.7 % (22.0-44.0); MEAN CORPUSCULAR HEMOGLOBIN 27.9 pg (26.0-34.0); MEAN CORPUSCULAR HGB CONC 33.1 G/dL (31.0-37.0); MEAN CORPUSCULAR VOLUME 84 fL (80-100); MONOCYTES % (AUTO) 8.3 % (2.0-9.0); NEUTROPHILS % (AUTO) 63.2 % (40.0-70.0); PLATELET COUNT (AUTO) 318 K/uL (150-450); RED BLOOD CELL COUNT(AUTO) 4.38 MIL/uL (4.00-5.20); RED CELL DISTRIBUTION WIDTH 16.8 % (11.5-14.5)
[2017-01-10 01:21] LABS: ANION GAP 11 mmol/L (8-16); CALCIUM, TOTAL 8.9 mg/dL (8.8-10.5); CARBON DIOXIDE 25 mmol/L (22-29); CHLORIDE 105 mmol/L (98-107); CREATININE 0.97 mg/dL (0.60-1.30); GLOMERULAR FILTR. RATE CALC > 60 mL/min (>60); POTASSIUM 4.1 mmol/L (3.5-5.1); SODIUM SERUM 141 mmol/L (136-145); UREA NITROGEN, BLOOD 15 mg/dL (7-18)
[2017-01-10 01:27] LABS: ALANINE AMINOTRANSFERASE 33 U/L (12-78); ALBUMIN 3.8 g/dL (3.4-5.0); ASPARTATE AMINOTRANSFERASE 20 U/L (15-37); BILIRUBIN,TOTAL 0.2 mg/dL (0.1-1.0); TOTAL PROTEIN, SERUM 7.2 g/dL (6.4-8.2)
[2017-01-10 01:28] LABS: BASOPHILS # (AUTO) 0.02 K/uL (0.00-0.20); EOSINOPHILS # (AUTO) 0.23 K/uL (0.00-0.70); LYMPHOCYTES # (AUTO) 3.7 K/uL (1.0-4.8); MONOCYTES # (AUTO) 1.2 K/uL (0.1-1.0); NEUTROPHILS # (AUTO) 8.9 K/uL (1.8-7.7)
[~2017-01-10 01:37] MED LIST changes: -FERR-89 PO; +LEVO25TA9 PO; +LISI-661 PO
[2017-01-10] MEDS ORDERED: DiphenhydrAMINE HCL 50 MG/ML VIAL IM ONE ×2 (01:45→16:45)
[2017-01-10] MEDS ORDERED: LORazepam 2 MG/ML VIAL IM ONE ×2 (01:45→16:45)
[2017-01-10] MEDS ORDERED: HALOPERIDOL LACTATE 5 MG/ML VIAL IM ONE ×2 (01:45→16:45)
[2017-01-10] MEDS ORDERED: HALOPERIDOL 5 MG TABLET PO PRN (03:45)
[2017-01-10] MEDS ORDERED: ZOLPIDEM TARTRATE 10 MG TABLET PO PRN (03:45)
[2017-01-10] MEDS ORDERED: LORazepam 2 MG TABLET PO PRN (03:45)
[2017-01-10] MEDS ORDERED: BACITRACIN 28.4 GM OINTMENT TP PRN (07:00)
[2017-01-10] MEDS ORDERED: LOPERAMIDE HCL 2 MG CAPSULE PO PRN (07:00)
[2017-01-10] MEDS ORDERED: MAG HYDROX/AL HYDROX/SIMETH ES 30 ML SUSPENSION UDCUP PO PRN (07:00)
[2017-01-10] MEDS ORDERED: PETROLATUM,WHITE 71 GM JELLY TP PRN (07:00)
[2017-01-10] MEDS ORDERED: CloNIDine HCL 0.1 MG TABLET PO PRN (07:00)
[2017-01-10] MEDS ORDERED: ACETAMINOPHEN 325 MG TABLET PO PRN (07:00)
[2017-01-10] MEDS ORDERED: IBUPROFEN 600 MG TABLET PO PRN (07:00)
[2017-01-10] MEDS ORDERED: ONDANSETRON HCL 4 MG TABLET PO PRN (07:00)
[2017-01-10] MEDS ORDERED: MAGNESIUM HYDROXIDE SUSPENSION 30 ML UDCUP PO PRN (07:00)
[2017-01-10] MEDS ORDERED: ALBUTEROL SULFATE HFA 90 MCG/PUFF 8 GM INHALER IH PRN (07:00)
[2017-01-10] MEDS ORDERED: BENZOCAINE/MENTHOL LOZENGE MM PRN (07:00)
[2017-01-10] MEDS: LISINOPRIL 10 MG TABLET PO SCH ×2 (09:00→09:30)
[2017-01-10] MEDS ORDERED: HYDROCORTISONE 2.5% 30 GM CREAM TP ONE (09:00)
[2017-01-10] MEDS: NYSTATIN 15 GM POWDER BOTTLE TP SCH ×2 (09:00→20:10)
[2017-01-10] MEDS ORDERED: DiphenhydrAMINE HCL 50 MG/ML VIAL ONE (16:44)
[2017-01-10] MEDS ORDERED: LORazepam 2 MG/ML VIAL ONE (16:44)
[2017-01-10] MEDS ORDERED: HALOPERIDOL LACTATE 5 MG/ML VIAL ONE (16:45)
[2017-01-11] MEDS: LEVOTHYROXINE SODIUM 25 MCG TABLET PO SCH (06:30)
[2017-01-11] MEDS: LISINOPRIL 10 MG TABLET PO SCH (09:00)
[2017-01-11] MEDS: NYSTATIN 15 GM POWDER BOTTLE TP SCH ×2 (09:00→16:24)
[2017-01-11 15:50] VITALS: BP 106/62
[2017-01-11] MEDS ORDERED: INFLUENZA VIRUS VACCINE QVS 2017-18 (3YR+)/PF 60 MCG/0.5 ML SYRINGE IM ONE (16:15)
[2017-01-11] MEDS ORDERED: PNEUMOCOCCAL VACCINE POLYVALENT 0.5 ML VIAL [PPSV23] IM ONE (16:15)
[2017-01-12] MEDS: LEVOTHYROXINE SODIUM 25 MCG TABLET PO SCH (06:30)
[2017-01-12 06:41] VITALS: BP 100/63
[2017-01-12] MEDS: NICOTINE 21 MG/24 HOUR PATCH TD SCH (08:12)
[2017-01-12] MEDS: LISINOPRIL 10 MG TABLET PO SCH (08:13)
[2017-01-12 08:14] VITALS: BP 123/79
[2017-01-12] MEDS: NYSTATIN 15 GM POWDER BOTTLE TP SCH ×2 (08:18→16:49)
[2017-01-12] MEDS: RisperiDONE 3 MG TABLET PO SCH ×2 (10:15→21:24)
[2017-01-12 16:28] VITALS: BP 132/80
[2017-01-13] MEDS: LEVOTHYROXINE SODIUM 25 MCG TABLET PO SCH (06:30)
[2017-01-13] MEDS: RisperiDONE 3 MG TABLET PO SCH ×2 (08:44→20:21)
[2017-01-13] MEDS: NYSTATIN 15 GM POWDER BOTTLE TP SCH ×2 (08:45→16:24)
[2017-01-13] MEDS: NICOTINE 21 MG/24 HOUR PATCH TD SCH (08:45)
[2017-01-13] MEDS: LISINOPRIL 10 MG TABLET PO SCH (08:51)
[2017-01-13 09:00] VITALS: BP 120/77
[2017-01-13 16:22] VITALS: BP 123/74
[2017-01-14] MEDS: LEVOTHYROXINE SODIUM 25 MCG TABLET PO SCH (06:22)
[2017-01-14] MEDS: RisperiDONE 3 MG TABLET PO SCH ×2 (08:27→20:11)
[2017-01-14] MEDS: LISINOPRIL 10 MG TABLET PO SCH (08:27)
[2017-01-14] MEDS: NYSTATIN 15 GM POWDER BOTTLE TP SCH ×2 (08:27→16:08)
[2017-01-14] MEDS: NICOTINE 21 MG/24 HOUR PATCH TD SCH (08:27)
[2017-01-14 08:48] VITALS: BP 114/73
[2017-01-14 16:16] VITALS: BP 115/65
[2017-01-15] MEDS: LEVOTHYROXINE SODIUM 25 MCG TABLET PO SCH (06:30)
[2017-01-15 07:12] VITALS: BP 110/62
[2017-01-15] MEDS: LISINOPRIL 10 MG TABLET PO SCH (08:54)
[2017-01-15] MEDS: RisperiDONE 3 MG TABLET PO SCH (08:54)
[2017-01-15] MEDS: NICOTINE 21 MG/24 HOUR PATCH TD SCH (08:57)
[2017-01-15 09:05] VITALS: BP 126/80
[2017-01-15] MEDS: NYSTATIN 15 GM POWDER BOTTLE TP SCH (09:06)
[2017-01-15] MEDS ORDERED: LEVOTHYROXINE SODIUM 25 MCG TABLET PO ONE (09:15)
[2017-01-15] MEDS ORDERED: LISI-660 PO (12:43)
== END 2017-01-15 13:00 | disposition home or self-care (01) | DRG 750 ==
LOC: EMS 01:38 → B3A 01-11 13:26
DX: F20.0 Paranoid schizophrenia (principal); E66.01 Morbid (severe) obesity due to excess calories; I10 Essential (primary) hypertension; B35.6 Tinea cruris; E03.9 Hypothyroidism, unspecified; F15.10 Other stimulant abuse, uncomplicated; D72.829 Elevated white blood cell count, unspecified; G47.00 Insomnia, unspecified; J45.909 Unspecified asthma, uncomplicated; L30.9 Dermatitis, unspecified; F41.9 Anxiety disorder, unspecified; F17.210 Nicotine dependence, cigarettes, uncomplicated; Z59.0 Homelessness; Z71.51 Drug abuse counseling and surveillance of drug abuser; Z71.6 Tobacco abuse counseling; Z79.899 Other long term (current) drug therapy; Z68.36 Body mass index [BMI] 36.0-36.9, adult
CPT/HCPCS: 87081; 96372; 99291; G0480; J1200; J1630; J2060

== ENCOUNTER 2017-01-28 18:56 | Inpatient (IN) | payer MEDICAID, OTHER ==
[~2017-01-28] VITALS: Ht 167.6 cm; Wt 100.0 kg
[~2017-01-28 18:56] MED LIST changes: +LISI-660 PO; -LISI-661 PO
[2017-01-28] MEDS ORDERED: HALOPERIDOL LACTATE 5 MG/ML VIAL IM ONE (19:45)
[2017-01-28] MEDS ORDERED: LORazepam 2 MG/ML VIAL IM ONE (19:45)
[2017-01-28] MEDS ORDERED: DiphenhydrAMINE HCL 50 MG/ML VIAL IM ONE (19:45)
[2017-01-28] MEDS ORDERED: LORazepam 2 MG TABLET PO PRN (21:30)
[2017-01-28] MEDS ORDERED: HALOPERIDOL 5 MG TABLET PO PRN (21:30)
[2017-01-28] MEDS ORDERED: ZOLPIDEM TARTRATE 10 MG TABLET PO PRN (21:30)
[2017-01-28 21:32] LABS: BASOPHILS % (AUTO) 0.5 % (0.0-2.0); EOSINOPHILS % (AUTO) 1.5 % (1.0-6.0); HEMATOCRIT 31.2 % (36-46); HEMOGLOBIN 10.5 g/dL (12.0-16.0); LYMPHOCYTES # (AUTO) 1.8 K/uL (1.0-4.8); LYMPHOCYTES % (AUTO) 26.4 % (22.0-44.0); MEAN CORPUSCULAR HEMOGLOBIN 27.8 pg (26.0-34.0); MEAN CORPUSCULAR HGB CONC 33.7 G/dL (31.0-37.0); MEAN CORPUSCULAR VOLUME 82 fL (80-100); MONOCYTES # (AUTO) 0.7 K/uL (0.1-1.0); MONOCYTES % (AUTO) 10.2 % (2.0-9.0); NEUTROPHILS # (AUTO) 4.1 K/uL (1.8-7.7); NEUTROPHILS % (AUTO) 61.4 % (40.0-70.0); PLATELET COUNT (AUTO) 271 K/uL (150-450); RED BLOOD CELL COUNT(AUTO) 3.78 MIL/uL (4.00-5.20); RED CELL DISTRIBUTION WIDTH 15.2 % (11.5-14.5); WHITE BLOOD COUNT (AUTO) 6.7 K/uL (4.5-11.0)
[2017-01-28 21:43] LABS: ANION GAP 8 mmol/L (8-16); CALCIUM, TOTAL 8.7 mg/dL (8.8-10.5); CARBON DIOXIDE 26 mmol/L (22-29); CHLORIDE 106 mmol/L (98-107); CREATININE 0.99 mg/dL (0.60-1.30); GLOMERULAR FILTR. RATE CALC > 60 mL/min (>60); POTASSIUM 3.6 mmol/L (3.5-5.1); SODIUM SERUM 140 mmol/L (136-145); UREA NITROGEN, BLOOD 9 mg/dL (7-18)
[2017-01-28 21:48] LABS: ALANINE AMINOTRANSFERASE 20 U/L (12-78); ALBUMIN 3.3 g/dL (3.4-5.0); ASPARTATE AMINOTRANSFERASE 26 U/L (15-37); BILIRUBIN,TOTAL 0.3 mg/dL (0.1-1.0); TOTAL PROTEIN, SERUM 6.2 g/dL (6.4-8.2)
[2017-01-28] MEDS ORDERED: INFLUENZA VIRUS VACCINE QVS 2017-18 (3YR+)/PF 60 MCG/0.5 ML SYRINGE IM ONE (22:45)
[2017-01-28] MEDS ORDERED: PNEUMOCOCCAL VACCINE POLYVALENT 0.5 ML VIAL [PPSV23] IM ONE (22:45)
[2017-01-29] MEDS: RisperiDONE 3 MG TABLET PO SCH ×2 (08:37→20:20)
[2017-01-29] MEDS ORDERED: BACITRACIN 28.4 GM OINTMENT TP PRN (08:45)
[2017-01-29] MEDS ORDERED: BENZOCAINE/MENTHOL LOZENGE MM PRN (08:45)
[2017-01-29] MEDS ORDERED: ALBUTEROL SULFATE HFA 90 MCG/PUFF 8 GM INHALER IH PRN (08:45)
[2017-01-29] MEDS ORDERED: MAG HYDROX/AL HYDROX/SIMETH ES 30 ML SUSPENSION UDCUP PO PRN (08:45)
[2017-01-29] MEDS ORDERED: ONDANSETRON HCL 4 MG TABLET PO PRN (08:45)
[2017-01-29] MEDS ORDERED: MAGNESIUM HYDROXIDE SUSPENSION 30 ML UDCUP PO PRN (08:45)
[2017-01-29] MEDS ORDERED: CloNIDine HCL 0.1 MG TABLET PO PRN (08:45)
[2017-01-29] MEDS ORDERED: IBUPROFEN 600 MG TABLET PO PRN (08:45)
[2017-01-29] MEDS ORDERED: PETROLATUM,WHITE 71 GM JELLY TP PRN (08:45)
[2017-01-29] MEDS ORDERED: ACETAMINOPHEN 325 MG TABLET PO PRN (08:45)
[2017-01-29] MEDS ORDERED: LOPERAMIDE HCL 2 MG CAPSULE PO PRN (08:45)
[2017-01-30] MEDS: LEVOTHYROXINE SODIUM 25 MCG TABLET PO SCH (06:52)
[2017-01-30] MEDS: RisperiDONE 3 MG TABLET PO SCH ×2 (10:04→20:30)
[2017-01-30 16:09] VITALS: BP 112/60
[2017-01-31] MEDS: FERROUS SULFATE 325 MG EC TABLET PO SCH ×2 (06:27→17:21)
[2017-01-31] MEDS: LEVOTHYROXINE SODIUM 25 MCG TABLET PO SCH (06:27)
[2017-01-31] MEDS: RisperiDONE 3 MG TABLET PO SCH ×2 (08:38→20:25)
[2017-01-31 16:00] VITALS: BP 120/68
[2017-02-01] MEDS: LEVOTHYROXINE SODIUM 25 MCG TABLET PO SCH (06:30)
[2017-02-01] MEDS: FERROUS SULFATE 325 MG EC TABLET PO SCH (06:37)
[2017-02-01] MEDS: RisperiDONE 3 MG TABLET PO SCH ×2 (08:04→09:00)
[2017-02-01] MEDS ORDERED: RISP3 PO (09:19)
== END 2017-02-01 14:00 | disposition home or self-care (01) | DRG 750 ==
LOC: EMS 18:58 → B3A 21:26
DX: F20.0 Paranoid schizophrenia (principal); E66.01 Morbid (severe) obesity due to excess calories; I10 Essential (primary) hypertension; E03.9 Hypothyroidism, unspecified; F10.10 Alcohol abuse, uncomplicated; F12.10 Cannabis abuse, uncomplicated; F17.210 Nicotine dependence, cigarettes, uncomplicated; F31.9 Bipolar disorder, unspecified; G47.00 Insomnia, unspecified; J45.909 Unspecified asthma, uncomplicated; K59.00 Constipation, unspecified; Z71.51 Drug abuse counseling and surveillance of drug abuser; Z79.899 Other long term (current) drug therapy; Z28.21 Immunization not carried out because of patient refusal; Z68.35 Body mass index [BMI] 35.0-35.9, adult
CPT/HCPCS: 87081; 96372; 99285; G0480; J1200; J1630; J2060

== ENCOUNTER 2017-03-10 16:28 | Inpatient (IN) | payer MEDICAID ==
[2017-03-10] MEDS ORDERED: LORazepam 2 MG/ML VIAL IM ONE (17:15)
[2017-03-10] MEDS ORDERED: DiphenhydrAMINE HCL 50 MG/ML VIAL IM ONE (17:15)
[2017-03-10] MEDS ORDERED: HALOPERIDOL LACTATE 5 MG/ML VIAL IM ONE (17:15)
[2017-03-10] MEDS ORDERED: LORazepam 2 MG/ML VIAL ONE (17:16)
[2017-03-10] MEDS ORDERED: DiphenhydrAMINE HCL 50 MG/ML VIAL ONE (17:17)
[2017-03-10] MEDS ORDERED: HALOPERIDOL LACTATE 5 MG/ML VIAL ONE (17:17)
[2017-03-10 17:30] VITALS: BP 134/88
[2017-03-10] MEDS ORDERED: HALOPERIDOL 5 MG TABLET PO PRN (17:45)
[2017-03-10] MEDS ORDERED: LORazepam 2 MG TABLET PO PRN (17:45)
[2017-03-10] MEDS ORDERED: ZOLPIDEM TARTRATE 10 MG TABLET PO PRN (17:45)
[2017-03-10] MEDS ORDERED: PNEUMOCOCCAL VACCINE POLYVALENT 0.5 ML VIAL [PPSV23] IM ONE (18:00)
[2017-03-10] MEDS ORDERED: INFLUENZA VIRUS VACCINE QVS 2017-18 (3YR+)/PF 60 MCG/0.5 ML SYRINGE IM ONE (18:00)
[2017-03-10] MEDS ORDERED: BACITRACIN 28.4 GM OINTMENT TP PRN (19:00)
[2017-03-10] MEDS ORDERED: PETROLATUM,WHITE 71 GM JELLY TP PRN (19:00)
[2017-03-10] MEDS ORDERED: ONDANSETRON HCL 4 MG TABLET PO PRN (19:00)
[2017-03-10] MEDS ORDERED: IBUPROFEN 600 MG TABLET PO PRN (19:00)
[2017-03-10] MEDS ORDERED: CloNIDine HCL 0.1 MG TABLET PO PRN (19:00)
[2017-03-10] MEDS ORDERED: ACETAMINOPHEN 325 MG TABLET PO PRN (19:00)
[2017-03-10] MEDS ORDERED: LOPERAMIDE HCL 2 MG CAPSULE PO PRN (19:00)
[2017-03-10] MEDS ORDERED: BENZOCAINE/MENTHOL LOZENGE MM PRN (19:00)
[2017-03-10] MEDS ORDERED: MAG HYDROX/AL HYDROX/SIMETH ES 30 ML SUSPENSION UDCUP PO PRN (19:00)
[2017-03-10] MEDS ORDERED: ALBUTEROL SULFATE HFA 90 MCG/PUFF 8 GM INHALER IH PRN (19:00)
[2017-03-10] MEDS ORDERED: MAGNESIUM HYDROXIDE SUSPENSION 30 ML UDCUP PO PRN (19:00)
[2017-03-11] MEDS: LEVOTHYROXINE SODIUM 25 MCG TABLET PO SCH (06:18)
[2017-03-11] MEDS: FERROUS SULFATE 325 MG EC TABLET PO SCH ×2 (07:19→17:06)
[2017-03-11] MEDS: OMEPRAZOLE 20 MG CAPSULE PO SCH (08:25)
[2017-03-11] MEDS: DOCUSATE SODIUM 100 MG CAPSULE PO SCH (08:25)
[2017-03-11] MEDS: DIVALPROEX SODIUM 500 MG DR TABLET PO SCH (17:06)
[2017-03-11] MEDS: LITHIUM CARBONATE 300 MG CAPSULE PO SCH (17:06)
[2017-03-11] MEDS: RisperiDONE 3 MG TABLET PO SCH (20:05)
[2017-03-12 05:06] VITALS: BP 137/85
[2017-03-12] MEDS: LEVOTHYROXINE SODIUM 25 MCG TABLET PO SCH (06:30)
[2017-03-12] MEDS: FERROUS SULFATE 325 MG EC TABLET PO SCH ×2 (07:00→16:15)
[2017-03-12 08:30] VITALS: BP 133/81
[2017-03-12] MEDS: DIVALPROEX SODIUM 500 MG DR TABLET PO SCH ×2 (09:04→16:15)
[2017-03-12] MEDS: RisperiDONE 3 MG TABLET PO SCH ×2 (09:04→20:06)
[2017-03-12] MEDS: LITHIUM CARBONATE 300 MG CAPSULE PO SCH ×2 (09:05→16:15)
[2017-03-12] MEDS: DOCUSATE SODIUM 100 MG CAPSULE PO SCH (09:05)
[2017-03-12] MEDS: OMEPRAZOLE 20 MG CAPSULE PO SCH (09:05)
[2017-03-12 14:00] VITALS: BP 124/66
[2017-03-12 16:00] VITALS: BP 124/66
[2017-03-13] MEDS: FERROUS SULFATE 325 MG EC TABLET PO SCH ×2 (07:34→16:25)
[2017-03-13] MEDS: LEVOTHYROXINE SODIUM 25 MCG TABLET PO SCH (07:34)
[2017-03-13 08:30] VITALS: BP 118/70
[2017-03-13] MEDS: DOCUSATE SODIUM 100 MG CAPSULE PO SCH (09:00)
[2017-03-13] MEDS: OMEPRAZOLE 20 MG CAPSULE PO SCH (09:00)
[2017-03-13] MEDS: DIVALPROEX SODIUM 500 MG DR TABLET PO SCH ×2 (09:08→16:25)
[2017-03-13] MEDS: RisperiDONE 3 MG TABLET PO SCH ×2 (09:08→20:25)
[2017-03-13] MEDS: LITHIUM CARBONATE 300 MG CAPSULE PO SCH ×2 (09:08→16:25)
[2017-03-13 16:46] VITALS: BP 134/70
[2017-03-14] MEDS: LEVOTHYROXINE SODIUM 25 MCG TABLET PO SCH (06:17)
[2017-03-14] MEDS: FERROUS SULFATE 325 MG EC TABLET PO SCH ×2 (06:17→16:49)
[2017-03-14] MEDS: DOCUSATE SODIUM 100 MG CAPSULE PO SCH (09:00)
[2017-03-14] MEDS: OMEPRAZOLE 20 MG CAPSULE PO SCH (09:00)
[2017-03-14] MEDS: RisperiDONE 3 MG TABLET PO SCH ×2 (09:10→20:31)
[2017-03-14] MEDS: LITHIUM CARBONATE 300 MG CAPSULE PO SCH ×2 (09:10→16:49)
[2017-03-14] MEDS: DIVALPROEX SODIUM 500 MG DR TABLET PO SCH ×2 (09:16→16:49)
[2017-03-15] MEDS: LEVOTHYROXINE SODIUM 25 MCG TABLET PO SCH (06:57)
[2017-03-15] MEDS: FERROUS SULFATE 325 MG EC TABLET PO SCH ×2 (06:57→16:14)
[2017-03-15] MEDS: DOCUSATE SODIUM 100 MG CAPSULE PO SCH (09:00)
[2017-03-15] MEDS: OMEPRAZOLE 20 MG CAPSULE PO SCH (09:00)
[2017-03-15] MEDS: RisperiDONE 3 MG TABLET PO SCH ×2 (09:58→20:12)
[2017-03-15] MEDS: LITHIUM CARBONATE 300 MG CAPSULE PO SCH ×2 (09:58→16:14)
[2017-03-15] MEDS: DIVALPROEX SODIUM 500 MG DR TABLET PO SCH ×2 (09:58→16:14)
[2017-03-15 16:22] VITALS: BP 140/80
[2017-03-16] MEDS: LEVOTHYROXINE SODIUM 25 MCG TABLET PO SCH (06:31)
[2017-03-16] MEDS: FERROUS SULFATE 325 MG EC TABLET PO SCH (06:41)
[2017-03-16] MEDS ORDERED: DIVA500T35 PO (08:17)
[2017-03-16] MEDS ORDERED: FERR-89 PO (08:17)
[2017-03-16] MEDS ORDERED: LITH300C3 PO (08:17)
[2017-03-16] MEDS: OMEPRAZOLE 20 MG CAPSULE PO SCH (09:00)
[2017-03-16] MEDS: DOCUSATE SODIUM 100 MG CAPSULE PO SCH (09:00)
[2017-03-16] MEDS: DIVALPROEX SODIUM 500 MG DR TABLET PO SCH (09:00)
[2017-03-16] MEDS: RisperiDONE 3 MG TABLET PO SCH (09:00)
[2017-03-16] MEDS: LITHIUM CARBONATE 300 MG CAPSULE PO SCH (09:00)
== END 2017-03-16 11:00 | disposition home or self-care (01) | DRG 750 ==
LOC: B3A 17:45
PROVIDERS: ADMIT Psychiatry & Neurology Psychiatry; ATTEND Psychiatry & Neurology Psychiatry
DX: F20.0 Paranoid schizophrenia (principal); E46 Unspecified protein-calorie malnutrition; R45.851 Suicidal ideations; Z91.14 Patient's other noncompliance with medication regimen; Z59.0 Homelessness; Z28.21 Immunization not carried out because of patient refusal; E03.9 Hypothyroidism, unspecified; I10 Essential (primary) hypertension; K21.9 Gastro-esophageal reflux disease without esophagitis; W57.XXXA Bitten or stung by nonvenomous insect and other nonvenomous arthropods, initial encounter; K59.00 Constipation, unspecified; F17.200 Nicotine dependence, unspecified, uncomplicated; Z71.6 Tobacco abuse counseling; F12.10 Cannabis abuse, uncomplicated; Z71.51 Drug abuse counseling and surveillance of drug abuser; E66.9 Obesity, unspecified; F10.10 Alcohol abuse, uncomplicated; Y90.9 Presence of alcohol in blood, level not specified; Z71.41 Alcohol abuse counseling and surveillance of alcoholic; G47.00 Insomnia, unspecified; D64.9 Anemia, unspecified; F31.9 Bipolar disorder, unspecified
CPT/HCPCS: J1200; J1630; J2060

== ENCOUNTER 2017-03-24 17:18 | Inpatient (IN) | payer MEDICAID, OTHER ==
[~2017-03-24] VITALS: Ht 172.7 cm; Wt 113.0 kg
[~2017-03-24 17:18] MED LIST changes: +DIVA500T35 PO; +FERR-89 PO; -LISI-660 PO; +LITH300C3 PO
[2017-03-24] MEDS ORDERED: DiphenhydrAMINE HCL 50 MG/ML VIAL IM ONE (19:30)
[2017-03-24] MEDS ORDERED: HALOPERIDOL LACTATE 5 MG/ML VIAL IM ONE (19:30)
[2017-03-24] MEDS ORDERED: LORazepam 2 MG/ML VIAL IM ONE (19:30)
[2017-03-24] MEDS ORDERED: HALOPERIDOL 5 MG TABLET PO PRN (20:00)
[2017-03-24] MEDS ORDERED: ZOLPIDEM TARTRATE 10 MG TABLET PO PRN (20:00)
[2017-03-24] MEDS ORDERED: LORazepam 2 MG TABLET PO PRN (20:00)
[2017-03-24 21:06] LABS: BASOPHILS % (AUTO) 0.6 % (0.0-2.0); EOSINOPHILS % (AUTO) 1.2 % (1.0-6.0); HEMATOCRIT 34.8 % (36-46); HEMOGLOBIN 11.5 g/dL (12.0-16.0); LYMPHOCYTES # (AUTO) 2.5 K/uL (1.0-4.8); LYMPHOCYTES % (AUTO) 26.7 % (22.0-44.0); MEAN CORPUSCULAR HEMOGLOBIN 26.6 pg (26.0-34.0); MEAN CORPUSCULAR HGB CONC 33.1 G/dL (31.0-37.0); MEAN CORPUSCULAR VOLUME 80 fL (80-100); MONOCYTES # (AUTO) 0.9 K/uL (0.1-1.0); MONOCYTES % (AUTO) 9.4 % (2.0-9.0); NEUTROPHILS # (AUTO) 5.9 K/uL (1.8-7.7); NEUTROPHILS % (AUTO) 62.1 % (40.0-70.0); PLATELET COUNT (AUTO) 354 K/uL (150-450); RED BLOOD CELL COUNT(AUTO) 4.34 MIL/uL (4.00-5.20); RED CELL DISTRIBUTION WIDTH 16.1 % (11.5-14.5)
[2017-03-24 21:19] LABS: ANION GAP 6 mmol/L (8-16); CALCIUM, TOTAL 8.6 mg/dL (8.8-10.5); CARBON DIOXIDE 28 mmol/L (22-29); CHLORIDE 103 mmol/L (98-107); CREATININE 1.21 mg/dL (0.60-1.30); GLOMERULAR FILTR. RATE CALC 51 mL/min (>60); GLUCOSE,RANDOM 95 mg/dL (70-110); POTASSIUM 3.8 mmol/L (3.5-5.1); SODIUM SERUM 137 mmol/L (136-145); UREA NITROGEN, BLOOD 21 mg/dL (7-18)
[2017-03-24 21:27] LABS: LITHIUM < 0.20 mmol/L (0.60-1.20)
[2017-03-24 21:30] LABS: ALANINE AMINOTRANSFERASE 24 U/L (12-78); ALBUMIN 3.6 g/dL (3.4-5.0); ALKALINE PHOSPHATASE 81 U/L (46-116); ASPARTATE AMINOTRANSFERASE 13 U/L (15-37); BILIRUBIN,TOTAL 0.1 mg/dL (0.1-1.0); CHOL/HDL RATIO 4.1 (3.9-5.7); CHOLESTEROL 175 mg/dL (131-200); HDL CHOLESTEROL 43 mg/dL (40-60); LDL CHOL (CALC.) 108 mg/dL (0-130); THYROID STIMULATING HORMONE 2.57 uIU/mL (0.36-3.74); TOTAL PROTEIN, SERUM 7.1 g/dL (6.4-8.2); TRIGLYCERIDES 120 mg/dL (15-150)
[2017-03-24 21:46] LABS: VALPROIC ACID < 3 mcg/mL (50-100)
[2017-03-24 23:13] VITALS: BP 146/83
[2017-03-25] MEDS ORDERED: INFLUENZA VIRUS VACCINE QVS 2017-18 (3YR+)/PF 60 MCG/0.5 ML SYRINGE IM ONE (01:00)
[2017-03-25] MEDS ORDERED: PNEUMOCOCCAL VACCINE POLYVALENT 0.5 ML VIAL [PPSV23] IM ONE (01:00)
[2017-03-25] MEDS ORDERED: MAG HYDROX/AL HYDROX/SIMETH ES 30 ML SUSPENSION UDCUP PO PRN (08:15)
[2017-03-25] MEDS ORDERED: MAGNESIUM HYDROXIDE SUSPENSION 30 ML UDCUP PO PRN (08:15)
[2017-03-25] MEDS ORDERED: ACETAMINOPHEN 325 MG TABLET PO PRN (08:15)
[2017-03-25] MEDS ORDERED: PETROLATUM,WHITE 71 GM JELLY TP PRN (08:15)
[2017-03-25] MEDS ORDERED: ALBUTEROL SULFATE HFA 90 MCG/PUFF 8 GM INHALER IH PRN (08:15)
[2017-03-25] MEDS ORDERED: CloNIDine HCL 0.1 MG TABLET PO PRN (08:15)
[2017-03-25] MEDS ORDERED: LOPERAMIDE HCL 2 MG CAPSULE PO PRN (08:15)
[2017-03-25] MEDS ORDERED: IBUPROFEN 600 MG TABLET PO PRN (08:15)
[2017-03-25] MEDS ORDERED: BACITRACIN 28.4 GM OINTMENT TP PRN (08:15)
[2017-03-25] MEDS ORDERED: BENZOCAINE/MENTHOL LOZENGE MM PRN (08:15)
[2017-03-25] MEDS ORDERED: ONDANSETRON HCL 4 MG TABLET PO PRN (08:15)
[2017-03-25] MEDS: ATENOLOL 50 MG TABLET PO SCH (12:00)
[2017-03-25] MEDS: RisperiDONE 3 MG TABLET PO SCH (21:00)
[2017-03-26] MEDS: LEVOTHYROXINE SODIUM 25 MCG TABLET PO SCH (06:52)
[2017-03-26] MEDS: DIVALPROEX SODIUM 500 MG DR TABLET PO SCH ×2 (09:00→16:38)
[2017-03-26] MEDS: ATENOLOL 50 MG TABLET PO SCH (09:00)
[2017-03-26] MEDS: LITHIUM CARBONATE 300 MG CAPSULE PO SCH ×2 (09:00→16:38)
[2017-03-26] MEDS: RisperiDONE 3 MG TABLET PO SCH ×2 (09:42→20:23)
[2017-03-26] MEDS ORDERED: HALOPERIDOL LACTATE 5 MG/ML VIAL ONE (11:46)
[2017-03-26] MEDS ORDERED: DiphenhydrAMINE HCL 50 MG/ML VIAL ONE (11:46)
[2017-03-26] MEDS ORDERED: LORazepam 2 MG/ML VIAL ONE (11:46)
[2017-03-26] MEDS ORDERED: HALOPERIDOL LACTATE 5 MG/ML VIAL IM ONE (12:00)
[2017-03-26] MEDS ORDERED: LORazepam 2 MG/ML VIAL IM ONE (12:00)
[2017-03-26] MEDS ORDERED: DiphenhydrAMINE HCL 50 MG/ML VIAL IM ONE (12:00)
[2017-03-27] MEDS: LEVOTHYROXINE SODIUM 25 MCG TABLET PO SCH (06:29)
[2017-03-27] MEDS: DIVALPROEX SODIUM 500 MG DR TABLET PO SCH ×2 (09:00→17:00)
[2017-03-27] MEDS: LITHIUM CARBONATE 300 MG CAPSULE PO SCH ×2 (09:00→17:00)
[2017-03-27] MEDS: ATENOLOL 50 MG TABLET PO SCH (09:00)
[2017-03-27] MEDS: RisperiDONE 3 MG TABLET PO SCH ×2 (09:57→21:01)
[2017-03-28] MEDS: LEVOTHYROXINE SODIUM 25 MCG TABLET PO SCH (06:30)
[2017-03-28] MEDS: RisperiDONE 3 MG TABLET PO SCH ×2 (08:45→20:59)
[2017-03-28] MEDS: ATENOLOL 50 MG TABLET PO SCH (08:46)
[2017-03-28] MEDS: DIVALPROEX SODIUM 500 MG DR TABLET PO SCH ×2 (08:46→17:00)
[2017-03-28] MEDS: LITHIUM CARBONATE 300 MG CAPSULE PO SCH ×2 (08:46→17:00)
[2017-03-29] MEDS: LEVOTHYROXINE SODIUM 25 MCG TABLET PO SCH (06:30)
[2017-03-29] MEDS: LITHIUM CARBONATE 300 MG CAPSULE PO SCH ×2 (09:00→17:00)
[2017-03-29] MEDS: ATENOLOL 50 MG TABLET PO SCH (09:00)
[2017-03-29] MEDS: DIVALPROEX SODIUM 500 MG DR TABLET PO SCH ×2 (09:00→17:00)
[2017-03-29] MEDS: RisperiDONE 3 MG TABLET PO SCH ×2 (09:20→20:17)
[2017-03-30] MEDS: LEVOTHYROXINE SODIUM 25 MCG TABLET PO SCH (06:30)
[2017-03-30] MEDS: DIVALPROEX SODIUM 500 MG DR TABLET PO SCH (09:00)
[2017-03-30] MEDS: LITHIUM CARBONATE 300 MG CAPSULE PO SCH (09:00)
[2017-03-30] MEDS: ATENOLOL 50 MG TABLET PO SCH (09:00)
[2017-03-30] MEDS: RisperiDONE 3 MG TABLET PO SCH (09:00)
[2017-03-30] MEDS ORDERED: ATEN50TA PO (09:22)
== END 2017-03-30 10:45 | disposition home or self-care (01) | DRG 750 ==
LOC: EMS 17:22 → B3A 21:06
PROVIDERS: ADMIT Psychiatry & Neurology Psychiatry; ATTEND Psychiatry & Neurology Psychiatry
DX: F20.0 Paranoid schizophrenia (principal); Z78.1 Physical restraint status; E03.9 Hypothyroidism, unspecified; E66.9 Obesity, unspecified; F12.90 Cannabis use, unspecified, uncomplicated; Z71.51 Drug abuse counseling and surveillance of drug abuser; F17.210 Nicotine dependence, cigarettes, uncomplicated; G47.00 Insomnia, unspecified; J45.909 Unspecified asthma, uncomplicated; K59.00 Constipation, unspecified; S00.81XA Abrasion of other part of head, initial encounter; Z79.899 Other long term (current) drug therapy; M54.5 Low back pain; D64.9 Anemia, unspecified; X58.XXXA Exposure to other specified factors, initial encounter; Y93.89 Activity, other specified; Y92.89 Other specified places as the place of occurrence of the external cause; Y99.8 Other external cause status; Z68.37 Body mass index [BMI] 37.0-37.9, adult
CPT/HCPCS: 84443; 87081; 96372; 99285; G0480; J1200; J1630; J2060

== ENCOUNTER 2017-04-28 09:28 | Inpatient (IN) | payer MEDICAID, OTHER ==
[~2017-04-28] VITALS: Ht 167.6 cm; Wt 109.3 kg
[~2017-04-28 09:28] MED LIST changes: +ATEN50TA PO; -FERR-89 PO
[2017-04-28 14:30] LABS: BASOPHILS % (AUTO) 0.5 % (0.0-2.0); EOSINOPHILS % (AUTO) 1.3 % (1.0-6.0); HEMATOCRIT 37.1 % (36-46); HEMOGLOBIN 12.3 g/dL (12.0-16.0); LYMPHOCYTES # (AUTO) 1.8 K/uL (1.0-4.8); LYMPHOCYTES % (AUTO) 29.4 % (22.0-44.0); MEAN CORPUSCULAR HEMOGLOBIN 26.3 pg (26.0-34.0); MEAN CORPUSCULAR HGB CONC 33.2 G/dL (31.0-37.0); MEAN CORPUSCULAR VOLUME 79 fL (80-100); MONOCYTES # (AUTO) 0.6 K/uL (0.1-1.0); MONOCYTES % (AUTO) 9.9 % (2.0-9.0); NEUTROPHILS # (AUTO) 3.6 K/uL (1.8-7.7); NEUTROPHILS % (AUTO) 58.9 % (40.0-70.0); PLATELET COUNT (AUTO) 361 K/uL (150-450); RED CELL DISTRIBUTION WIDTH 17.4 % (11.5-14.5)
[2017-04-28 14:36] LABS: LITHIUM < 0.20 mmol/L (0.60-1.20)
[2017-04-28 14:42] LABS: ANION GAP 10 mmol/L (8-16); CALCIUM, TOTAL 8.8 mg/dL (8.8-10.5); CARBON DIOXIDE 27 mmol/L (22-29); CHLORIDE 102 mmol/L (98-107); CREATININE 0.98 mg/dL (0.60-1.30); GLOMERULAR FILTR. RATE CALC > 60 mL/min (>60); GLUCOSE,RANDOM 89 mg/dL (70-110); POTASSIUM 3.9 mmol/L (3.5-5.1); SODIUM SERUM 139 mmol/L (136-145); UREA NITROGEN, BLOOD 12 mg/dL (7-18)
[2017-04-28 14:54] LABS: AMPHET/METH SCREEN,URINE POSITIVE (NEGATIVE); BARBITURATE SCREEN, URINE NEGATIVE (NEGATIVE); BENZODIAZEPINES SCREEN,URINE NEGATIVE (NEGATIVE); CANNABINOID SCREEN,URINE POSITIVE (NEGATIVE); COCAINE SCREEN,URINE NEGATIVE (NEGATIVE); METHADONE SCREEN, URINE NEGATIVE (NEGATIVE); OPIATE SCREEN,URINE NEGATIVE (NEGATIVE)
[2017-04-28 14:54] LABS: ALANINE AMINOTRANSFERASE 25 U/L (12-78); ALKALINE PHOSPHATASE 91 U/L (46-116); ASPARTATE AMINOTRANSFERASE 19 U/L (15-37); BILIRUBIN,TOTAL 0.4 mg/dL (0.1-1.0); THYROID STIMULATING HORMONE 1.34 uIU/mL (0.36-3.74); TOTAL PROTEIN, SERUM 7.4 g/dL (6.4-8.2)
[2017-04-28 14:56] LABS: PHENCYCLIDINE SCREEN,URINE NEGATIVE (NEGATIVE)
[2017-04-28] MEDS ORDERED: SODIUM CHLORIDE 0.9% 250 ML IRRIG SOLUTION BOTTLE IRRIG ONE (15:00)
[2017-04-28] MEDS ORDERED: LORazepam 2 MG/ML VIAL IM ONE ×2 (15:00→15:45)
[2017-04-28] MEDS ORDERED: DiphenhydrAMINE HCL 50 MG/ML VIAL IM ONE (15:00)
[2017-04-28] MEDS ORDERED: HALOPERIDOL LACTATE 5 MG/ML VIAL IM ONE (15:00)
[2017-04-28 15:07] LABS: VALPROIC ACID < 3 mcg/mL (50-100)
[2017-04-28] MEDS ORDERED: HALOPERIDOL 5 MG TABLET PO PRN (15:30)
[2017-04-28 15:44] LABS: FREE T4 (FREE THYROXINE) 1.41 ng/dL (0.76-1.46)
[2017-04-28] MEDS ORDERED: PERTUSS(ACELL),DIPH,TET VAC/PF 0.5 ML VIAL IM ONE (15:45)
[2017-04-28] MEDS: DIVALPROEX SODIUM 500 MG DR TABLET PO SCH (17:00)
[2017-04-28] MEDS: LITHIUM CARBONATE 300 MG CAPSULE PO SCH (17:00)
[2017-04-28] MEDS: RisperiDONE 3 MG TABLET PO SCH (21:00)
[2017-04-28] MEDS ORDERED: ALBUTEROL SULFATE HFA 90 MCG/PUFF 8 GM INHALER IH PRN (21:30)
[2017-04-29] MEDS: LEVOTHYROXINE SODIUM 25 MCG TABLET PO SCH (06:55)
[2017-04-29] MEDS: BACITRACIN 28.4 GM OINTMENT TP SCH ×2 (09:00→17:00)
[2017-04-29] MEDS: RisperiDONE 3 MG TABLET PO SCH ×2 (09:00→20:40)
[2017-04-29] MEDS: DIVALPROEX SODIUM 500 MG DR TABLET PO SCH ×2 (09:00→17:00)
[2017-04-29] MEDS: LITHIUM CARBONATE 300 MG CAPSULE PO SCH ×2 (09:00→17:00)
[2017-04-29] MEDS: NICOTINE 21 MG/24 HOUR PATCH TD SCH (09:00)
[2017-04-29] MEDS ORDERED: PERMETHRIN 5% 60 GM CREAM TP ONE (09:00)
[2017-04-29] MEDS: ATENOLOL 50 MG TABLET PO SCH (09:00)
[2017-04-29] MEDS ORDERED: IBUPROFEN 400 MG TABLET PO PRN (11:15)
[2017-04-29] MEDS ORDERED: ACETAMINOPHEN 325 MG TABLET PO PRN (11:15)
[2017-04-30] MEDS ORDERED: INFLUENZA VIRUS VACCINE QVS 2017-18 (3YR+)/PF 60 MCG/0.5 ML SYRINGE IM ONE (02:45)
[2017-04-30] MEDS: LEVOTHYROXINE SODIUM 25 MCG TABLET PO SCH (07:00)
[2017-04-30] MEDS ORDERED: LORazepam 2 MG/ML VIAL ONE (08:35)
[2017-04-30] MEDS ORDERED: DiphenhydrAMINE HCL 50 MG/ML VIAL ONE (08:36)
[2017-04-30] MEDS ORDERED: HALOPERIDOL LACTATE 5 MG/ML VIAL ONE (08:36)
[2017-04-30] MEDS ORDERED: HALOPERIDOL LACTATE 5 MG/ML VIAL IM ONE (08:40)
[2017-04-30] MEDS ORDERED: LORazepam 2 MG/ML VIAL IM ONE (08:40)
[2017-04-30] MEDS ORDERED: DiphenhydrAMINE HCL 50 MG/ML VIAL IM ONE (08:40)
[2017-04-30] MEDS: LITHIUM CARBONATE 300 MG CAPSULE PO SCH ×2 (09:00→16:29)
[2017-04-30] MEDS: RisperiDONE 3 MG TABLET PO SCH ×2 (09:00→20:38)
[2017-04-30] MEDS: ATENOLOL 50 MG TABLET PO SCH (09:00)
[2017-04-30] MEDS: NICOTINE 21 MG/24 HOUR PATCH TD SCH (09:00)
[2017-04-30] MEDS: BACITRACIN 28.4 GM OINTMENT TP SCH ×2 (09:00→16:29)
[2017-04-30] MEDS: DIVALPROEX SODIUM 500 MG DR TABLET PO SCH ×2 (09:00→16:28)
[2017-05-01] MEDS: LEVOTHYROXINE SODIUM 25 MCG TABLET PO SCH (06:57)
[2017-05-01] MEDS: BACITRACIN 28.4 GM OINTMENT TP SCH ×2 (09:00→17:00)
[2017-05-01] MEDS: NICOTINE 21 MG/24 HOUR PATCH TD SCH (09:00)
[2017-05-01] MEDS: ATENOLOL 50 MG TABLET PO SCH (09:00)
[2017-05-01] MEDS: LITHIUM CARBONATE 300 MG CAPSULE PO SCH ×2 (09:35→17:00)
[2017-05-01] MEDS: DIVALPROEX SODIUM 500 MG DR TABLET PO SCH ×2 (09:35→17:00)
[2017-05-01] MEDS: RisperiDONE 3 MG TABLET PO SCH ×2 (09:35→21:00)
[2017-05-01] MEDS ORDERED: LORazepam 2 MG/ML VIAL ONE (09:39)
[2017-05-01] MEDS ORDERED: HALOPERIDOL LACTATE 5 MG/ML VIAL ONE (09:40)
[2017-05-01] MEDS ORDERED: DiphenhydrAMINE HCL 50 MG/ML VIAL ONE (09:40)
[2017-05-01] MEDS ORDERED: LORazepam 2 MG/ML VIAL IM ONE (09:45)
[2017-05-01] MEDS ORDERED: HALOPERIDOL LACTATE 5 MG/ML VIAL IM ONE (09:45)
[2017-05-01] MEDS ORDERED: DiphenhydrAMINE HCL 50 MG/ML VIAL IM ONE (09:45)
[2017-05-02] MEDS: LEVOTHYROXINE SODIUM 25 MCG TABLET PO SCH (06:36)
[2017-05-02] MEDS: DIVALPROEX SODIUM 500 MG DR TABLET PO SCH ×2 (09:00→17:00)
[2017-05-02] MEDS: RisperiDONE 3 MG TABLET PO SCH ×2 (09:00→21:00)
[2017-05-02] MEDS: BACITRACIN 28.4 GM OINTMENT TP SCH ×2 (09:00→17:00)
[2017-05-02] MEDS: LITHIUM CARBONATE 300 MG CAPSULE PO SCH ×2 (09:00→17:00)
[2017-05-02] MEDS: NICOTINE 21 MG/24 HOUR PATCH TD SCH (09:00)
[2017-05-02] MEDS: ATENOLOL 50 MG TABLET PO SCH (09:00)
[2017-05-02] MEDS: LORazepam 2 MG TABLET PO PRN (13:05)
[2017-05-02] MEDS ORDERED: ChlorproMAZINE HCL 50 MG TABLET PO PRN (13:30)
[2017-05-02] MEDS ORDERED: HALOPERIDOL LACTATE 5 MG/ML VIAL ONE (13:41)
[2017-05-02] MEDS ORDERED: LORazepam 2 MG/ML VIAL ONE (13:43)
[2017-05-02] MEDS ORDERED: LORazepam 2 MG/ML VIAL IM ONE (13:45)
[2017-05-02] MEDS ORDERED: DiphenhydrAMINE HCL 50 MG/ML VIAL IM ONE (13:45)
[2017-05-03] MEDS: LEVOTHYROXINE SODIUM 25 MCG TABLET PO SCH (06:49)
[2017-05-03] MEDS: LITHIUM CARBONATE 300 MG CAPSULE PO SCH ×2 (09:00→16:11)
[2017-05-03] MEDS: NICOTINE 21 MG/24 HOUR PATCH TD SCH (09:00)
[2017-05-03] MEDS: DIVALPROEX SODIUM 500 MG DR TABLET PO SCH ×2 (09:00→16:11)
[2017-05-03] MEDS: BACITRACIN 28.4 GM OINTMENT TP SCH ×2 (09:00→16:11)
[2017-05-03] MEDS: ATENOLOL 50 MG TABLET PO SCH (09:00)
[2017-05-03] MEDS: RisperiDONE 3 MG TABLET PO SCH ×2 (09:00→20:33)
[2017-05-03] MEDS ORDERED: LORazepam 2 MG/ML VIAL IM ONE ×2 (16:00→19:00)
[2017-05-03] MEDS ORDERED: DiphenhydrAMINE HCL 50 MG/ML VIAL IM ONE (16:00)
[2017-05-04] MEDS: LEVOTHYROXINE SODIUM 25 MCG TABLET PO SCH (06:31)
[2017-05-04] MEDS: LITHIUM CARBONATE 300 MG CAPSULE PO SCH ×3 (09:00→18:36)
[2017-05-04] MEDS: DIVALPROEX SODIUM 500 MG DR TABLET PO SCH ×2 (12:35→18:36)
[2017-05-04] MEDS: RisperiDONE 3 MG TABLET PO SCH ×2 (12:35→21:33)
[2017-05-04] MEDS: ATENOLOL 50 MG TABLET PO SCH ×2 (12:37→15:13)
[2017-05-04] MEDS: NICOTINE 21 MG/24 HOUR PATCH TD SCH (12:37)
[2017-05-04] MEDS: BACITRACIN 28.4 GM OINTMENT TP SCH ×2 (12:38→18:40)
[2017-05-05] MEDS: LEVOTHYROXINE SODIUM 25 MCG TABLET PO SCH (07:00)
[2017-05-05] MEDS: BACITRACIN 28.4 GM OINTMENT TP SCH ×2 (09:00→16:26)
[2017-05-05] MEDS: DIVALPROEX SODIUM 500 MG DR TABLET PO SCH ×2 (10:07→16:26)
[2017-05-05] MEDS: RisperiDONE 3 MG TABLET PO SCH ×2 (10:07→20:42)
[2017-05-05] MEDS: LITHIUM CARBONATE 300 MG CAPSULE PO SCH ×2 (10:07→16:25)
[2017-05-05] MEDS: NICOTINE 21 MG/24 HOUR PATCH TD SCH (10:11)
[2017-05-05] MEDS: ZOLPIDEM TARTRATE 10 MG TABLET PO PRN (21:41)
[2017-05-06] MEDS: LEVOTHYROXINE SODIUM 25 MCG TABLET PO SCH (06:38)
[2017-05-06] MEDS: ATENOLOL 50 MG TABLET PO SCH ×2 (09:00→11:06)
[2017-05-06] MEDS: RisperiDONE 3 MG TABLET PO SCH ×2 (11:05→20:20)
[2017-05-06] MEDS: DIVALPROEX SODIUM 500 MG DR TABLET PO SCH ×2 (11:05→16:56)
[2017-05-06] MEDS: LITHIUM CARBONATE 300 MG CAPSULE PO SCH ×2 (11:06→16:56)
[2017-05-06] MEDS: BACITRACIN 28.4 GM OINTMENT TP SCH ×2 (11:06→16:57)
[2017-05-06] MEDS: NICOTINE 21 MG/24 HOUR PATCH TD SCH (11:07)
[2017-05-06 17:32] VITALS: BP 127/64
[2017-05-06] MEDS: ZOLPIDEM TARTRATE 10 MG TABLET PO PRN (20:20)
[2017-05-07] MEDS: LORazepam 2 MG TABLET PO PRN (02:12)
[2017-05-07] MEDS: LEVOTHYROXINE SODIUM 25 MCG TABLET PO SCH ×3 (06:39→07:00)
[2017-05-07] MEDS: RisperiDONE 3 MG TABLET PO SCH (08:42)
[2017-05-07] MEDS: LITHIUM CARBONATE 300 MG CAPSULE PO SCH (08:42)
[2017-05-07] MEDS: DIVALPROEX SODIUM 500 MG DR TABLET PO SCH (08:43)
[2017-05-07] MEDS: ATENOLOL 50 MG TABLET PO SCH (09:00)
[2017-05-07] MEDS: BACITRACIN 28.4 GM OINTMENT TP SCH (09:00)
[2017-05-07] MEDS: NICOTINE 21 MG/24 HOUR PATCH TD SCH (09:03)
[2017-05-07] MEDS ORDERED: BACI30OI6 TP (10:08)
== END 2017-05-07 11:45 | disposition home or self-care (01) | DRG 750 ==
LOC: EMS 09:30 → 3EC 16:47
PROVIDERS: ADMIT Psychiatry & Neurology Psychiatry; ATTEND Psychiatry & Neurology Psychiatry
PROC: 3E0234Z Introduction of Serum, Toxoid and Vaccine into Muscle, Percutaneous Approach (ICD-10-PCS; principal; 2017-04-28)
DX: F25.9 Schizoaffective disorder, unspecified (principal); Z78.1 Physical restraint status; I10 Essential (primary) hypertension; F15.10 Other stimulant abuse, uncomplicated; E03.9 Hypothyroidism, unspecified; F17.200 Nicotine dependence, unspecified, uncomplicated; J45.909 Unspecified asthma, uncomplicated; K59.00 Constipation, unspecified; E66.9 Obesity, unspecified; G47.00 Insomnia, unspecified; Z71.51 Drug abuse counseling and surveillance of drug abuser; Z59.0 Homelessness; Z23 Encounter for immunization; Z71.6 Tobacco abuse counseling; Z68.38 Body mass index [BMI] 38.0-38.9, adult; Z79.899 Other long term (current) drug therapy
CPT/HCPCS: 84439; 84443; 87081; 90715; 96372; 99285; G0480; J1200; J1630; J2060; J3230